=== PATIENT | male | born 1965 | race Caucasian/White ===

== ENCOUNTER 2017-10-10 21:59 | Emergency (ER) | payer OTHER, MEDICAID ==
[2017-10-10] MEDS: ACETAMINOPHEN 500 MG TAB PO (23:17)
[2017-10-11] MEDS: morphine 4 MG/ML VIAL IV (01:04)
[2017-10-11] MEDS: ONDANSETRON 4 MG INJ IV (01:04)
== END 2017-10-11 02:30 | disposition short-term general hospital (02) ==
LOC: FTE 21:59
DX: S02.92XA Unspecified fracture of facial bones, initial encounter for closed fracture (principal); S02.80XA Fracture of other specified skull and facial bones, unspecified side, initial encounter for closed fracture; E11.9 Type 2 diabetes mellitus without complications; R51 Headache; Y04.0XXA Assault by unarmed brawl or fight, initial encounter
CPT/HCPCS: 70450; 70486; 72125; 96374; 96375; 99285-25

== ENCOUNTER 2018-01-08 14:56 | Emergency (ER) | payer MEDICAID | END 2018-01-08 17:29 | disposition home or self-care (01) | LOC: E/R 14:56 | DX: E11.621 Type 2 diabetes mellitus with foot ulcer (principal); L97.421 Non-pressure chronic ulcer of left heel and midfoot limited to breakdown of skin | CPT/HCPCS: 99282; Z7502 ==

== ENCOUNTER 2018-10-29 13:04 | Emergency (ER) | payer MEDICAID, OTHER ==
[2018-10-29] MEDS: KETOROLAC 30 MG INJ IM (15:05)
[2018-10-29] MEDS: HYDROCODONE/APAP (5/325) TAB PO (15:06)
== END 2018-10-29 15:24 | disposition home or self-care (01) ==
LOC: FTE 13:04
DX: M54.41 Lumbago with sciatica, right side (principal); E11.9 Type 2 diabetes mellitus without complications
CPT/HCPCS: 96372; 99284-25

== ENCOUNTER 2019-03-20 09:19 | Emergency (ER) | payer SELFPAY, OTHER, MEDICAID ==
[2019-03-20] MEDS: ONDANSETRON (ODT) 4 MG TAB ODT (10:22)
[2019-03-20] MEDS: LIDOCAINE/MYLANTA 40 ML BTL PO (10:22)
[2019-03-20 10:51] LABS: ADD UMIC YES; UR ASCORBIC ACID 40 mg/dL (NEGATIVE); UR BILIRUBIN (Dip) NEGATIVE (NEGATIVE); UR BLOOD (Dip) NEGATIVE (NEGATIVE); UR CLARITY SLIGHTLY CLOUDY (CLEAR); UR COLOR YELLOW (YELLOW); UR GLUCOSE (Dip) 3+ mg/dL (NEGATIVE); UR KETONES (Dip) NEGATIVE (NEGATIVE); UR LEUKOCYTE ESTERASE (Dip) NEGATIVE Leu/ul (NEGATIVE); UR MUCUS FEW /HPF (NONE SEEN); UR NITRITE (Dip) NEGATIVE (NEGATIVE); UR RBC 1 /HPF (0-5); UR SPECIFIC GRAVITY (Dip) 1.032 (1.003-1.030); UR TOTAL PROTEIN (Dip) 1+ mg/dl (NEGATIVE); UR UROBILINOGEN (Dip) NEGATIVE (NEGATIVE); UR WBC 5 /HPF (0-5)
[2019-03-20 12:08] LABS: ADD MAN DIFF? NO
[2019-03-20 12:09] LABS: WHITE BLOOD COUNT 5.1 10^3/ul (4.8-10.8)
[2019-03-20 12:09] LABS: BASOPHILS % 0.4 % (0.0-2.0); EOSINOPHILS # 0.1 10^3/ul (0.0-0.5); EOSINOPHILS % 1.8 % (0.0-7.0); HEMATOCRIT 42.1 % (42.0-52.0); HEMOGLOBIN 13.6 g/dl (14.0-18.0); LYMPHOCYTES # 1.5 10^3/ul (0.8-2.9); LYMPHOCYTES % 30.2 % (15.0-51.0); MEAN CORPUSCULAR HEMOGLOBIN 28.7 pg (29.0-33.0); MEAN CORPUSCULAR HGB CONC 32.3 g/dl (32.0-37.0); MEAN CORPUSCULAR VOLUME 88.8 fl (82.0-101.0); MONOCYTE # 0.4 10^3/ul (0.3-0.9); NEUTROPHILS % 59.4 % (39.0-77.0); PLATELET COUNT 259 10^3/UL (140-415); RED BLOOD COUNT 4.74 10^6/ul (4.70-6.10); RED CELL DISTRIBUTION WIDTH 13.1 % (11.5-14.5)
[2019-03-20 12:26] LABS: ALANINE AMINOTRANSFERASE 19 IU/L (13-69); ALBUMIN 4.5 g/dl (3.3-4.9); ALBUMIN/GLOBULIN RATIO 1.07; ALKALINE PHOSPHATASE 87 IU/L (42-121); ANION GAP 8 (5-13); ASPARTATE AMINO TRANSFERASE 21 IU/L (15-46); BILIRUBIN,INDIRECT 0.4 mg/dl (0-1.1); BILIRUBIN,TOTAL 0.4 mg/dl (0.2-1.3); BLOOD UREA NITROGEN 23 mg/dl (7-20); CALCIUM 9.7 mg/dl (8.4-10.2); CARBON DIOXIDE 30 mmol/L (21-31); CHLORIDE 97 mmol/L (97-110); Estimated GFR > 60 mL/min (>60); GLUCOSE 391 mg/dl (70-220); POTASSIUM 4.5 mmol/L (3.5-5.1); SODIUM 135 mmol/L (135-144); TOTAL PROTEIN 8.7 g/dl (6.1-8.1)
[2019-03-20 12:35] LABS: INR 0.89; PARTIAL THROMBOPLASTIN TIME 25.8 Sec (23.0-35.0); PROTIME 12.1 Sec (11.9-14.9); PT RATIO 0.9
[2019-03-20 12:38] LABS: TROPONIN-I < 0.012 ng/ml (0.000-0.120)
[2019-03-20] MEDS: SOD CHLORIDE 0.9% 100 ML (12:45)
[2019-03-20] MEDS: IOHEXOL 300MG/ML 150 ML BTL (12:46)
[2019-03-20 13:12] LABS: LIPASE 121 U/L (23-300)
== END 2019-03-20 13:40 | disposition home or self-care (01) ==
LOC: FTE 09:19
DX: R11.2 Nausea with vomiting, unspecified (principal); E11.9 Type 2 diabetes mellitus without complications; R10.11 Right upper quadrant pain
CPT/HCPCS: 74177; 76705; 80053; 81001; 83690; 84484; 85025; 85610; 85730; 93005; 99285-25